=== PATIENT | female | born 1960 | race Caucasian/White ===

== ENCOUNTER 2022-05-31 12:24 | Outpatient (CLI) | payer BC ==
--- NOTE | 2022-06-01 11:31 | Mammography Report ---
BILATERAL DIGITAL DIAGNOSTIC MAMMOGRAM 3D/2D: 05/31/2022 CLINICAL: Patient returns today to evaluate a focal asymmetry in the left breast. Provider requested add'l view on right breast. Comparison is made to exams dated: 04/08/2022 mammogram - [facility], 03/11/2021 mammo gram, 04/04/2019 mammogram, and 03/30/2018 mammogram - [facility]. Both breasts are heterogeneously dense, which may obscure small masses (category c / 51-75% glandula r tissue). The multiple asymmetries with an obscured and indistinct margin in the left breast posterior depth solorio perior region seen on the mediolateral oblique view only are no longer seen and most likely are fibro glandular tissue. No other significant masses, calcifications, or other findings are seen in either breast. IMPRESSION: INCOMPLETE: NEEDS ADDITIONAL IMAGING EVALUATION An ultrasound is recommended to confirm the no longer seen asymmetries in the left breast posterior d epth superior region seen on the mediolateral oblique view only. Based on Tyrer-Cuzick model (a risk assessment model), the patient's lifetime risk is 25.8% and her 1 0 year risk is 12.2%. If a patient has an elevated risk, a more comprehensive evaluation should be co nsidered and/or a referral to a genetic counselor. The [place] [employer], [employer], and NCCN Guidelines advise the consideration of Breast MRI as an adjunct to screening mammo graphy in patients whose "Lifetime risk to develop breast cancer" is 20% or higher. This exam was interpreted at Station ID: [id number]. NOTE: For mammograms, a report in lay terms will be sent to the patient. Approximately 15% of breast malignancies will not be visualized mammographically. In the management of a palpable breast mass, a negative mammogram must not discourage biopsy of a clinically suspicious lesion. Electronically Signed By: Leif alcazar/sravan:05/31/2022 16:41:12 ACR BI-RADS Category 0: Incomplete 3340F PARENCHYMAL PATTERN: (D) - The breast(s) demonstrate(s) heterogeneously dense fibroglandular parenchy ma. BI-RADS CATEGORY: (0) - 0 Ultrasound [id number] Immediate follow-up LATERALITY: (L)
--- NOTE | 2022-06-01 11:31 | Ultrasound Report ---
LIMITED ULTRASOUND OF LEFT BREAST: 05/31/2022 CLINICAL: Patient returns today to evaluate a focal asymmetry in the left breast. Comparison is made to exams dated: 05/31/2022 mammogram, 04/08/2022 mammogram - [facility], 03/11/2021 mammogram, 04/04/2019 mammogram, and 03/30/2018 mammogram - [facility]. Real-time ultrasound of the left breast 3-4 o'clock and 7-8 o'clock regions was performed. Horta sca le images of the real-time examination were reviewed. No significant abnormalities were seen sonographically in the left breast. IMPRESSION: NEGATIVE There is no sonographic evidence of malignancy. There is no abnormality seen in the left breast to correspond with the mammography finding which is c onsistent with normal fibroglandular tissue. Return to annual mammogram screening schedule is recommended. This exam was interpreted at Station ID: [id number]. Electronically Signed By: Leif alcazar/sravan:05/31/2022 16:42:12 Ultrasound BI-RADS: 1 Negative BI-RADS CATEGORY: (1) - 1 Mammogram [id number] return to screening LATERALITY: (B)
== END 2022-05-31 12:25 | disposition home or self-care (01) ==
LOC: DI 12:24
DX: R92.8 Other abnormal and inconclusive findings on diagnostic imaging of breast (principal)

== ENCOUNTER 2023-05-11 13:57 | Outpatient (CLI) | payer BC ==
--- NOTE | 2023-05-12 12:06 | Mammography Report ---
BILATERAL DIGITAL SCREENING MAMMOGRAM 3D/2D: 05/11/2023 CLINICAL: Routine screening. Comparison is made to exams dated: 05/31/2022 mammogram, [facility], 03/11/2021 mammogram, 04/04/2019 mammogram, 03/30/2018 mammogram, and 03/29/2017 mammogram - [facility]. Both breasts are extremely dense, which lowers the sensitivity of mammography (category d />75% gland ular tissue). No significant masses, calcifications, or other findings are seen in either breast. There has been no significant interval change. IMPRESSION: NEGATIVE There is no mammographic evidence of malignancy. A 1 year screening mammogram is recommended. Based on Tyrer-Cuzick model (a risk assessment model), the patient's lifetime risk is 35.6% and her 1 0 year risk is 18.1%. If a patient has an elevated risk, a more comprehensive evaluation should be co nsidered and/or a referral to a genetic counselor. The [place] [employer], [employer], and NCCN Guidelines advise the consideration of Breast MRI as an adjunct to screening mammo graphy in patients whose "Lifetime risk to develop breast cancer" is 20% or higher. This exam was interpreted at Station ID: [id number]. NOTE: For mammograms, a report in lay terms will be sent to the patient. Approximately 15% of breast malignancies will not be visualized mammographically. In the management of a palpable breast mass, a negative mammogram must not discourage biopsy of a clinically suspicious lesion. Electronically Signed By: Ludy gilliam/sravan:05/11/2023 21:15:58 letter sent: No_Letter ACR BI-RADS Category 1: Negative 3341F PARENCHYMAL PATTERN: (VD) - The breast(s) demonstrate(s) extremely dense parenchyma, limiting the sen sitivity of mammography. BI-RADS CATEGORY: (1) - 1 Mammogram [id number] 1 year screening LATERALITY: (B)
== END 2023-05-11 13:58 | disposition home or self-care (01) ==
LOC: DI 13:57
DX: Z12.31 Encounter for screening mammogram for malignant neoplasm of breast (principal)

== ENCOUNTER 2023-09-27 11:41 | Outpatient (CLI) | payer BC ==
--- NOTE | 2023-09-27 16:00 | XRAY Report ---
PROCEDURE: Cervical Spine 4-5V INDICATIONS: NUMBNESS OF HAND TECHNIQUE: 4 views of the cervical spine acquired. COMPARISON: None. FINDINGS: Bones: No fractures or dislocations to the T1 level. Degenerative endplate changes are noted at C5-6 and C4-5 levels. Bilateral facet hypertrophic changes also seen at C4-5 and C5-6 levels. Oblique tomas ges demonstrate bilateral bony foraminal stenosis at C4-5 level. Soft tissues: No prevertebral soft tissue swelling. IMPRESSION: Degenerative disc disease at C4-5 and C5-6 levels. No acute fracture or dislocation. Bilateral bony f oraminal stenosis at C4-5 level seen on oblique views. Reviewed by: Gregory Narayanan MD on 09/27/2023 3:58 PM PST Approved by: Gregory Narayanan MD on 09/27/2023 3:58 PM PST Station ID: [id number]
== END 2023-09-27 11:42 | disposition home or self-care (01) ==
LOC: DI 11:41
PROVIDERS: ATTEND Naturopath
DX: R20.0 Anesthesia of skin (principal); M50.321 Other cervical disc degeneration at C4-C5 level; M48.02 Spinal stenosis, cervical region

== ENCOUNTER 2023-12-21 12:59 | Outpatient (CLI) | payer BC ==
--- NOTE | 2023-12-21 15:53 | DEXA Report ---
PROCEDURE: Dexa Spine and/or Hip INDICATIONS: SCREENING FOR OSTEOPOROSIS TECHNIQUE: Dual energy x-ray absorptiometry (DXA) was performed on a [employer] System. Regions measur ed are the AP Spine, femoral neck, and if needed forearm. COMPARISON: None. FINDINGS: Lumbar Spine: Bone Mineral Density: 1.003 g/cm/cm,T score: -1.5. Left Femoral Neck: Bone Mineral Density: 0.887 g/cm/cm, T score: -1.1. Left Hip: Bone Mineral Density: 0.901 g/cm/cm,T score: -0.8. (T score greater or equal to -1.0: NORMAL) (T score from -1.1 to -2.4: OSTEOPENIA) (T score less than or equal to -2.5 to: OSTEOPOROSIS) Impression: By WHO criteria, this patient has low bone density (osteopenia). Patients with diagnosis of osteoporosis or osteopenia should have regular bone mineral density assess ment. For those eligible for Medicare, routine testing is allowed once every 2 years. Testing frequ ency can be increased for patients who have rapidly progressing disease or for those who are receivin g medical therapy to restore bone mass. Reviewed by: Leif Davis MD on 12/21/2023 3:52 PM PDT Approved by: Leif Davis MD on 12/21/2023 3:52 PM PDT Station ID: [id number]
== END 2023-12-21 13:00 | disposition home or self-care (01) ==
LOC: DI 12:59
PROVIDERS: ATTEND Naturopath
DX: Z13.820 Encounter for screening for osteoporosis (principal); M85.89 Other specified disorders of bone density and structure, multiple sites